=== PATIENT | male | born 1960 | race African-American/Black ===

== ENCOUNTER 2016-10-30 10:32 | Outpatient (CLI) | payer MEDICARE, MEDICAID ==
[~2016-10-30] VITALS: Ht 175.3 cm; Wt 77.1 kg
[~2016-10-30 10:32] MED LIST: ABILIFY IM; ALPR.5T PO; AMIT50TA3; AMLO10TA4 PO; AMLO10TA82; AMOX500C2 PO; ARIP15TA PO; BNZT1T PO; Campral; DOXY100C2 PO; ESZO1TAB2 PO; FLUT16SP22 NS; HYDR-1231 PO; HYDR-3714; HYDR-3714 PO; HYDR118S10 PO; HYDR1CAP2 PO; HYDR1TAB PO; LORA-794 PO; LOVASTATIN; MELO-198 PO; MELO7.5T PO; NAPR-243 PO; OXYC-12 PO; PRED10TA PO; QUET400T; TRAM50TA2 PO; TRM50T PO; VARE1TAB17 PO; XARELTO PO; [UNRECOGNIZED DRUG - OTHER] IM; vicodin PO
[2016-10-30] MEDS ORDERED: CLON2TAB3 PO (13:54)
[2016-10-30] MEDS ORDERED: LISI1TAB10 PO (13:54)
[2016-10-30] MEDS ORDERED: HYDR-3812 PO (13:54)
== END 2016-10-30 13:58 ==
LOC: PREOP 10:32
PROVIDERS: ATTEND Surgery
DX: Z01.818 Encounter for other preprocedural examination (principal); Z85.038 Personal history of other malignant neoplasm of large intestine; K92.1 Melena

== ENCOUNTER 2016-11-03 12:47 | Day surgery (SDC) | payer MEDICARE, MEDICAID ==
[~2016-11-03] VITALS: Ht 175.3 cm; Wt 77.1 kg
[~2016-11-03 12:47] MED LIST changes: +CLON2TAB3 PO; +HYDR-3812 PO; +LISI1TAB10 PO
[2016-11-03] MEDS ORDERED: NS IV 1000 ML 1,000 ML IV STA (12:56)
[2016-11-03 13:04] VITALS: BP 118/84
[2016-11-03] MEDS ORDERED: NS IV 1000 ML 1,000 ML ONE (13:09)
[2016-11-03] MEDS ORDERED: PROPOFOL INJECTION 50 ML IV ONE (15:23)
--- NOTE | 2016-11-03 15:23 | Progress Note-Pre Operative ---
Pre-Operative Progress Note H&P Reviewed The H&P was reviewed, patient examined and no changes noted. Date Seen by Provider: Nov 03, 2016 Time Seen by Provider: 15:23 Date H&P Reviewed: Nov 03, 2016 Time H&P Reviewed: 15:23 Pre-Operative Diagnosis: family history colon cancer, bloody stool PEEWEE MCCORMICK DO Nov 03, 2016 3:23 pm
[2016-11-03] MEDS ORDERED: PHENYLEPHRINE 100 MCG/ML 10 ML (ANESTHESIA) SYR ONE (15:38)
[2016-11-03] MEDS ORDERED: NS IV 500 ML 500 ML ONE (16:00)
--- NOTE | 2016-11-03 16:03 | Discharge Inst-Simple/Standard ---
Discharge Inst-Standard Patient Instructions/Follow Up Plan of Care/Instructions/FU: Follow up with Dr. Luna in 2 weeks. Activity as Tolerated: Yes Discharge Diet: No Restrictions DEMIAN MEDEROS APRN Nov 03, 2016 16:03
--- NOTE | 2016-11-03 16:11 | Progress Note-Post Operative ---
Post-Operative Progess Note Surgeon (s)/Echo Vascular Tech (s) Surgeon PEEWEE MCCORMICK DO Echo Vascular Tech: na Pre-Operative Diagnosis family history colon cancer, bloody stool Post-Operative Diagnosis sigmoid polyp Procedure & Operative Findings Date of Procedure 11/03/16 Procedure Performed/Findings colonoscopy with hot bx polypectomy Anesthesia Type per surgical pathologist Estimated Blood Loss Estimated blood loss (mL): none Specimens/Packing Specimens Removed sigmoid polyp PEEWEE MCCORMICK DO Nov 03, 2016 4:11 pm
[2016-11-03 16:20] VITALS: BP 115/80
[2016-11-03 16:47] VITALS: BP 123/87
[2016-11-03 16:48] VITALS: BP 123/87
--- NOTE | 2016-11-04 03:29 | OPERATIVE REPORT ---
DATE OF SERVICE: 11/03/2016 PREOPERATIVE DIAGNOSES: 1. Family history of colon cancer. 2. Blood in stools. POSTOPERATIVE DIAGNOSIS: Sigmoid colon polyp. PROCEDURE: Colonoscopy with hot biopsy polypectomy. SURGEON: Peewee Luna DO ANESTHESIA: Per CONTOUR SANDER. ESTIMATED BLOOD LOSS: None. COMPLICATIONS: None. INDICATIONS: The patient is a 55-year-old male with family history of colon cancer and had one episode of bloody stools. He has not had any since. This was in September. The patient was explained risks and benefits of having a colonoscopy performed. He understands risks and benefits and wishes to proceed. Consent was signed and on the chart. DESCRIPTION OF PROCEDURE: The patient was taken to the endoscopy suite, placed in left lateral recumbent position. Timeout was performed. Digital rectal exam was performed. There were no palpable polyps, masses or ulcerations. Scope was inserted in the rectum and advanced all the way to the cecum with minimal difficulty. Prep was adequate. Scope was then slowly retracted back. There were no polyps, masses or ulcerations within the cecum, ascending, transverse and descending colon. Within the sigmoid colon, a very small polyp was present, which hot biopsy polypectomy was performed. Scope was slowly continued to be retracted back noting no other pathology until the rectum where it was also retroflexed noting no further pathology. Scope was returned to its normal position, slowly withdrawn until completely removed, noting no other pathology. The patient tolerated procedure well without any complications and was taken to the recovery room in stable condition. RECOMMENDATIONS: The patient will follow up in office in two weeks to discuss pathology results. He will need repeat colonoscopy in 5 years unless he has changes prior to that which he should be reevaluated at that time. Job ID: [id number] DocumentID: [id number] Dictated Date: 11/03/2016 16:15:12 Skoog Machine Operator Date: 11/04/2016 03:28:01 Dictated By: PEEWEE LUNA DO
--- OUTSIDE RECORDS SUMMARY | 2016-11-05 16:20 | XMS REPORT ---
Author Author JARROD SIDHU Organization [employer] Address Unknown Phone Unavailable Care Team Providers Care Building Engineer Name Role Phone JARROD SIDHU CP Unavailable Allergies No Known Allergies Problems Problem Type Condition Code Onset Dates Condition Status Problem Osteoarthrosis, unspecified whether generalized or localized, lower leg 715.96 Active Problem Unspecified essential hypertension 401.9 Active Problem Chronic pain syndrome 338.4 Active Problem Unspecified schizophrenia, unspecified condition 295.90 Active Problem Hypertension, benign I10 Active Problem Lumbago 724.2 Active Problem Anxiety state, unspecified 300.00 Active Problem Traumatic arthropathy, 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
--- OUTSIDE RECORDS SUMMARY | 2016-11-05 16:20 | XMS REPORT ---
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
--- OUTSIDE RECORDS SUMMARY | 2016-11-05 16:20 | XMS REPORT ---
Author Author JARROD SIDHU Organization [facility] Address [address] [place] [address] Care Team Providers Care Planogrammer Name Role Phone JARROD SIDHU Unavailable PROBLEMS Type Condition ICD9-CM Code [id number] Code Onset Dates Condition Status SNOMED Code Problem Unspecified essential hypertension 401.9 Active 62363774 Problem Anxiety state, unspecified 300.00 Active 562525206 Problem Osteoarthrosis, unspecified whether generalized or localized, lower leg 715.96 Active 909890469 Assessment Pain in left knee M25.562 Dec, Active 10054812 Assessment Other chronic pain G89.29 Dec, Active 49183716 Problem Hypertension, benign I10 Active 24334537 Problem Chronic pain syndrome 338.4 Active 630569836 Problem Unspecified psychosis 298.9 Active 69024612 Problem Lumbago 724.2 Active 910266771 Problem Unspecified schizophrenia, unspecified condition 295.90 Active 04854176 Problem Traumatic arthropathy, 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 201509037 ALLERGIES Substance Reaction Event Type Date Status Meloxicam nausea Drug Allergy Dec, Active Haldol anaphylaxis Drug Allergy Dec, Active SOCIAL HISTORY No smoking Hx information available PLAN OF CARE VITAL SIGNS Height 67 in 2015-12-23 Weight 176.3 lbs 2015-12-23 Heart Rate 72 bpm 2015-12-23 Respiratory Rate 18 2015-12-23 BMI 27.61 kg/m2 2015-12-23 Blood pressure systolic 152 mmHg 2015-12-23 Blood pressure diastolic 102 mmHg 2015-12-23 MEDICATIONS Medication Instructions Dosage Frequency Start Date End Date Duration Status Lisinopril-Hydrochlorothiazide 20-25 MG Orally Once a day 1 tablet 24h Dec, Active Abilify Maintena 400 mg inject 400 mg by intramuscular route once a month Mar, Active Klonopin 0.5 MG 1 tablet 12h 30 Jul, 2014 Active [place] 5-325 MG Orally every 6 hrs 1 tablet as needed 6h Dec, Active KELSEY Knee Brace Medium 1 1 brace Jul, Active RESULTS No Results PROCEDURES Procedure Date Ordered Related Diagnosis Body Site [facility] VISIT ESTABLISHED PATIENT Dec 23, 2015 Office Visit, Est Pt., Level 3 Dec 23, 2015 IMMUNIZATIONS No Known Immunizations
--- OUTSIDE RECORDS SUMMARY | 2016-11-05 16:20 | XMS REPORT ---
Author Author JARROD SIDHU Organization [employer] Address Unknown Phone Unavailable Care Team Providers Care Private Pilot Name Role Phone JARROD SIDHU CP Unavailable [...] Active Problem Unspecified psychosis 298.9 Active Medications No Known Medications Results No Known Results Summary Purpose [employer] Submission
--- OUTSIDE RECORDS SUMMARY | 2016-11-05 16:20 | XMS REPORT ---
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
--- OUTSIDE RECORDS SUMMARY | 2016-11-05 16:20 | XMS REPORT ---
Author Author JARROD SIDHU Organization [employer] Address Unknown Phone Unavailable Care Team Providers Care Director Meetings Name Role Phone JARROD SIDHU CP Unavailable [...]
--- OUTSIDE RECORDS SUMMARY | 2016-11-05 16:21 | XMS REPORT ---
Author Author JARROD SIDHU Organization [employer] Address Unknown Phone Unavailable Care Team Providers Care Harvest Worker Name Role Phone JARROD SIDHU CP Unavailable [...] 298.9 Active Problem Lumbago 724.2 Active Medications No Known Medications Results No Known Results Summary Purpose [employer] Submission
--- OUTSIDE RECORDS SUMMARY | 2016-11-05 16:21 | XMS REPORT ---
Author Author JARROD SIDHU Organization [employer] Address Unknown Phone Unavailable Care Team Providers Care Wood Scaler Name Role Phone JARROD SIDHU CP Unavailable [...]
--- OUTSIDE RECORDS SUMMARY | 2016-11-05 16:21 | XMS REPORT ---
Author Author JARROD SIDHU [facility] Address [address] [place] [address] Care Team Providers Care Twenty One Dealer Name Role Phone JARROD SIDHU Unavailable PROBLEMS Type Condition ICD9-CM Code [id number] Code Onset Dates Condition Status SNOMED Code Problem Unspecified essential hypertension 401.9 Active 41874535 Problem Anxiety state, unspecified 300.00 Active 398403340 Problem Osteoarthrosis, unspecified whether generalized or localized, lower leg 715.96 Active 830577937 Problem Hypertension, benign I10 Active 86201809 Problem Chronic pain syndrome 338.4 Active 419436460 Problem Unspecified psychosis 298.9 Active 95124520 Problem Lumbago 724.2 Active 976936967 Problem Unspecified schizophrenia, unspecified condition 295.90 Active 18414541 Problem Traumatic arthropathy, 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
--- OUTSIDE RECORDS SUMMARY | 2016-11-05 16:21 | XMS REPORT ---
Author Author JARROD SIDHU Organization [employer] Address Unknown Phone Unavailable Care Team Providers Care Assembler Brazer Name Role Phone JARROD SIDHU CP Unavailable Allergies No Known Allergies Problems Problem Type Condition Code Onset Dates Condition Status Assessment Leg pain, left M79.605 Active Problem Osteoarthrosis, unspecified whether generalized or [...] Start Date End Date Status Dosage Klonopin [facility] [address]-37 0.5 MG Twice a day August 13, 2014 1 tablet Tramadol HCl [facility] [address]-26 50 mg Orally 3 times a day September 24, 2014 1 tablet as needed Results No Known Results Summary Purpose eClinicalWorks Submission
--- OUTSIDE RECORDS SUMMARY | 2016-11-05 16:21 | XMS REPORT ---
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 Problem Chronic pain syndrome 338.4 Active Problem Anxiety state, unspecified 300.00 Active Problem Osteoarthrosis, unspecified whether generalized or localized, lower leg 715.96 Active Problem Unspecified psychosis 298.9 Active Problem Lumbago 724.2 Active Medications Medication Code System Code Instructions Start Date End Date Status Dosage Klonopin [facility] [address]-74 0.5 MG Twice a day August 13, 2014 1 tablet Abilify Maintena [facility] [address]-67 400 mg Mar 28, 2014 inject 400 mg by intramuscular route once a month Lisinopril-Hydrochlorothiazide [facility] [address]-67 20-25 MG Orally Once a day Jan 02, 2015 1 tablet Tramadol HCl [facility] [address]-35 50 MG Orally 3 times a day September 24, 2014 1 tablet as needed Procedures Procedure Coding System Code Date Office Visit, Est Pt., Level 3 CPT-4 00928 May 27, 2015 [facility] VISIT ESTABLISHED PATIENT CPT-4 G0467 May 27, 2015 Vital Signs Date/Time: May 27, 2015 Temperature 98.8 F Weight 188 lbs Height 67 in BMI 29.44 Index Blood Pressure Diastolic 90 mmHg Blood Pressure Systolic 150 mmHg Cardiac Monitoring Heart Rate 88 bpm Results No Known Results Summary Purpose eClinicalWorks Submission
--- OUTSIDE RECORDS SUMMARY | 2016-11-05 16:21 | XMS REPORT ---
Author Author JARROD SIDHU [facility] Address [address] [place] [address] Care Team Providers Care Application Support Analyst Name Role Phone JARROD SIDHU Unavailable PROBLEMS Type Condition ICD9-CM Code [id number] Code Onset Dates Condition Status SNOMED Code Problem Unspecified essential hypertension 401.9 Active 44144367 Problem Anxiety state, unspecified 300.00 Active 405391627 Problem Osteoarthrosis, unspecified whether generalized or localized, lower leg 715.96 Active 630288366 Problem Hypertension, benign I10 Active 47246357 Problem Chronic pain syndrome 338.4 Active 429529574 Problem Unspecified psychosis 298.9 Active 67408379 Problem Lumbago 724.2 Active 174252010 Problem Unspecified schizophrenia, unspecified condition 295.90 Active 97044693 Problem Traumatic arthropathy, 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
--- OUTSIDE RECORDS SUMMARY | 2016-11-05 16:21 | XMS REPORT ---
Author Author JARROD SIDHU Organization [employer] Address Unknown Phone Unavailable Care Team Providers Care Farm Tractor Mechanic Name Role Phone JARROD SIDHU CP Unavailable [...] Start Date End Date Status Dosage Klonopin [facility] [address]-14 0.5 MG Twice a day August 13, 2014 1 tablet Results No Known Results Summary Purpose [employer]ClinicalWorks Submission
--- OUTSIDE RECORDS SUMMARY | 2016-11-05 16:21 | XMS REPORT ---
Author Author JARROD SIDHU Organization [employer] Address Unknown Phone Unavailable Care Team Providers Care Ibm Mainframe Systems Programmer Name Role Phone JARROD SIDHU CP Unavailable [...]
--- OUTSIDE RECORDS SUMMARY | 2016-11-05 16:21 | XMS REPORT ---
Author Author JARROD SIDHU Organization [employer] Address Unknown Phone Unavailable Care Team Providers Care Director Electrical Engineering Name Role Phone JARROD SIDHU CP Unavailable Allergies, Adverse Reactions, Alerts Substance Reaction Event Type Meloxicam nausea Drug Allergy Haldol anaphylaxis Drug Allergy Problems Problem Type Condition ICD-9 Code Onset Dates Condition Status Problem Unspecified [...] Start Date End Date Status Dosage Klonopin [facility] [address]-79 0.5 MG Twice a day August 13, 2014 1 tablet Abilify Maintena [facility] [address]-88 400 mg Mar 28, 2014 inject 400 mg by intramuscular route once a month Lisinopril-Hydrochlorothiazide [facility] [address]-03 20-25 MG Orally Once a day Jan 02, 2015 1 tablet Tramadol HCl [facility] [address]-11 50 MG Orally 3 times a day September 24, 2014 1 tablet as needed Procedures Procedure Coding System Code Date Office Visit, Est Pt., Level 3 CPT-4 65429 Jan 02, 2015 [facility] VISIT ESTABLISHED PATIENT CPT-4 G0467 Jan 02, 2015 Vital Signs Date/Time: Jan 02, 2015 Temperature 97.5 F Weight 169.2 lbs Height 67 in BMI 26.50 Index Blood Pressure Diastolic 108 mmHg Blood Pressure Systolic 162 mmHg Cardiac Monitoring Heart Rate 84 bpm Results No Known Results Summary Purpose eClinicalWorks Submission
--- OUTSIDE RECORDS SUMMARY | 2016-11-05 16:21 | XMS REPORT ---
Author Author JARROD SIDHU Organization [employer] Address Unknown Phone Unavailable Care Team Providers Care Refinery Technician Name Role Phone JARROD SIDHU CP Unavailable [...] Date End Date Status Dosage Tramadol HCl [facility] [address]-02 50 MG Orally 3 times a day September 24, 2014 1 tablet as needed Results No Known Results Summary Purpose [employer]Works Submission
--- OUTSIDE RECORDS SUMMARY | 2016-11-05 16:21 | XMS REPORT ---
Author Author JARROD SIDHU Organization [employer] Address Unknown Phone Unavailable Care Team Providers Care Needle Leader Name Role Phone JARROD SIDHU CP Unavailable [...]
--- OUTSIDE RECORDS SUMMARY | 2016-11-05 16:21 | XMS REPORT ---
Author Author JARROD SIDHU Organization [employer] Address Unknown Phone Unavailable Care Team Providers Care Animal Shelter Worker Name Role Phone JARROD SIDHU CP [...] Instructions Start Date End Date Status Dosage [facility] [address]-79 5-325 MG Orally every 6 hrs Dec 23, 2015 Apr 16, 2016 1 tablet as needed Results No Known Results Summary Purpose eClinicalWorks Submission
--- OUTSIDE RECORDS SUMMARY | 2016-11-05 16:22 | XMS REPORT ---
Author Author JARROD SIDHU Organization [employer] Address Unknown Phone Unavailable Care Team Providers Care Highwall Drill Operator Name Role Phone JARROD SIDHU CP Unavailable [...]
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
--- OUTSIDE RECORDS SUMMARY | 2016-11-05 16:22 | XMS REPORT ---
Author Author JARROD SIDHU Organization [employer] Address Unknown Phone Unavailable Care Team Providers Care Air Valve Repairer Name Role Phone JARROD SIDHU CP Unavailable Allergies No Known Allergies Problems Problem Type Condition ICD-9 Code Onset [...] Date End Date Status Dosage Tramadol HCl [facility] [address]-68 50 MG Orally 3 times a day September 24, 2014 1 tablet as needed Results No Known Results Summary Purpose [employer] Submission
--- OUTSIDE RECORDS SUMMARY | 2016-11-05 16:23 | XMS REPORT ---
Author Author JARROD SIDHU Organization [employer] Address Unknown Phone Unavailable Care Team Providers Care Medical Transcription Radiology Name Role Phone JARROD SIDHU CP Unavailable [...] Start Date End Date Status Dosage Klonopin [facility] [address]-81 0.5 MG Twice a day August 13, 2014 1 tablet Lisinopril-Hydrochlorothiazide [facility] [address]-27 20-25 MG Orally Once a day Jan 02, 2015 1 tablet Results No Known Results Summary Purpose [employer] Submission
--- OUTSIDE RECORDS SUMMARY | 2016-11-05 16:23 | XMS REPORT ---
Author Author JARROD SIDHU Organization [employer] Address Unknown Phone Unavailable Care Team Providers Care Motor Vehicle Technician Name Role Phone JARROD SIDHU CP [...] Date End Date Status Dosage Tramadol HCl [facility] [address]-81 50 MG Orally 3 times a day September 24, 2014 1 tablet as needed Results No Known Results Summary Purpose [employer] Submission
--- OUTSIDE RECORDS SUMMARY | 2016-11-05 16:23 | XMS REPORT ---
Author Author JARROD SIDHU Organization [employer] Address Unknown Phone Unavailable Care Team Providers Care Terminal Worker Name Role Phone JARROD SIDHU CP [...] Instructions Start Date End Date Status Dosage [facility] [address]-58 5-325 MG Orally every 6 hrs Dec 23, 2015 1 tablet as needed Results No Known Results Summary Purpose [employer] Submission
== END 2016-11-03 16:51 | disposition home or self-care (01) ==
LOC: ENDO 12:47
PROVIDERS: ATTEND Surgery
DX: K92.1 Melena (principal); D12.5 Benign neoplasm of sigmoid colon; Z80.0 Family history of malignant neoplasm of digestive organs